=== PATIENT | male | born 1980 | race Caucasian/White ===

== ENCOUNTER 2016-10-20 03:51 | Emergency (ER) | payer BC ==
[~2016-10-20] VITALS: Ht 182.9 cm; Wt 101.0 kg
[~2016-10-20 03:51] MED LIST: SULF1TAB47 PO
[2016-10-20 03:56] VITALS: BP 126/84; PULSE 84; RESP 16; TEMP 97.7; O2SAT 99
[2016-10-20 04:06] VITALS: BP 126/84; PULSE 84; RESP 18; TEMP 97.7; O2SAT 99
[2016-10-20] MEDS ORDERED: CYCL1TAB29 PO (04:59)
[2016-10-20] MEDS ORDERED: PERC5TAB12 PO (04:59)
[2016-10-20] MEDS ORDERED: IBUP800T23 PO (04:59)
[2016-10-20] MEDS ORDERED: ORPHENADRINE INJ 60 MG/2 ML AMP IM ONE (05:00)
[2016-10-20] MEDS ORDERED: KETOROLAC TROMETHAMINE 60 MG/2 ML (IM) VIAL IM ONE (05:00)
--- NOTE | 2016-10-20 05:00 | PD ---
HPI Chief Complaint: Pain: Acute or Chronic Time Seen by Provider: 04:39 Travel History International Travel<30 days: No Contact w/Intl Traveler<30days: No Traveled to known affect area: No History of Present Illness HPI The patient is a 36-year-old male who complains of 2 weeks of pain in the left lower back traveling to his buttocks. The pain does not go below the buttocks and he denies any numbness, weakness, bladder or bowel dysfunction. He has tried a chiropractor without relief. 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 COUNT INCLUDES THE [facility] Past Medical History Diminished Hearing: No Immunizations Current: Yes Tetanus Vaccination: Unknown Influenza Vaccination: No Social History Alcohol Use: Yes (1 MONTHLY) Tobacco Use: No Substance Use: No Allergies-Medications (Allergen,Severity, Reaction): Coded Allergies: No Known Allergies (Verified , 10/20/16) Reported Meds & Prescriptions Reported Meds & Active Scripts Active No Active Prescriptions or Reported Medications Review of Systems Except as stated in HPI: all other systems reviewed are Neg Physical Exam Narrative GENERAL: The patient is alert, oriented 3 in moderate apparent distress with his low back pain. SKIN: Warm and dry. HEAD: Atraumatic. Normocephalic. EYES: Pupils equal and round. No scleral icterus. No injection or drainage. ENT: No nasal bleeding or discharge. Mucous membranes pink and moist. NECK: Trachea midline. No JVD. CARDIOVASCULAR: Regular rate and rhythm. No murmur appreciated. RESPIRATORY: No accessory muscle use. Clear to auscultation. Breath sounds equal bilaterally. GASTROINTESTINAL: Abdomen soft, non-tender, nondistended. Hepatic and splenic margins not palpable. MUSCULOSKELETAL: No obvious deformities. No clubbing. No cyanosis. No edema. Straight leg raising is normal, deep tendon reflexes are 0+1 bilaterally both patella Achilles and pinprick is normal. I can completely reproduce the patient 's pain by pressing on the left buttocks where the sciatic nerve runs. NEUROLOGICAL: Awake and alert. No obvious cranial nerve deficits. Motor grossly within normal limits. Normal speech. PSYCHIATRIC: Appropriate mood and affect; insight and judgment normal. Data Data Last Documented VS Vital Signs Date Time Temp Pulse Resp B/P Pulse Ox O2 Delivery O2 Flow Rate FiO2 10/20/16 04:10 84 18 10/20/16 04:06 97.7 126/84 99 MDM Medical Decision Making Medical Screen Exam Complete: Yes Emergency Medical Condition: Yes Medical Record Reviewed: Yes Differential Diagnosis Herniated nucleus pulposus, sciatica, acute lumbosacral strain Narrative Course The patient appears to have sciatica. I can completely reproduce the pain by pressing on the buttocks where the sciatic nerve runs. Plan: The patient be given Flexeril, Motrin 800 mg 3 times a day and Percocet 5 for pain. He should not drink alcohol or drive or work as an aircraft powertrain repairer on the Percocet 5 or the Flexeril. Diagnosis Primary Impression: Sciatica of left side Additional Instructions: These next 3 days that you have off use them to rest. You can try a heating pad turned on its lowest setting and interposing a towel between the pad on your skin to avoid bravo. Warmth is beneficial but not hot. Med/Other Pt SpecificInfo: Prescription(s) given Scripts Oxycodone-Acetaminophen (Percocet)5-325 mg Tab1 Tab PO Q4H PRN (PAIN) #30 TAB Ref 0 Prov:Rizwan Johnson MD 10/20/16 Ibuprofen 800 Mg Gyx108 Mg PO TID #45 TAB Ref 0 Prov:Rizwan Johnson MD 10/20/16 Cyclobenzaprine (Flexeril)10 Mg Tab10 Mg PO TID #30 TAB Ref 0 Prov:Rizwan Johnson MD 10/20/16 Disposition: 01 DISCHARGE HOME Condition: Stable Rizwan Johnson MD Oct 20, 2016 05:00
[2016-10-20] MEDS ORDERED: KETOROLAC TROMETHAMINE 60 MG/2 ML (IM) VIAL IM SCH (05:15)
[2016-10-20] MEDS ORDERED: ORPHENADRINE INJ 60 MG/2 ML AMP IM SCH (05:15)
[2016-10-20 05:27] VITALS: BP 119/72; PULSE 74; RESP 18; O2SAT 97
== END 2016-10-20 05:40 | disposition home or self-care (01) ==
LOC: PHED 03:51
DX: M54.32 Sciatica, left side (principal)
CPT/HCPCS: 96372; 99283; J1885; J2360